=== PATIENT | female | born 1960 | race Hispanic/Latino ===

== ENCOUNTER 2024-11-12 07:47 | Day surgery (SDC) | payer OTHER ==
[~2024-11-12] VITALS: Ht 152.4 cm; Wt 58.5 kg
[~2024-11-12 07:47] MED LIST: DILAUDID 2MG2 MG/TA1 PO; KEFLEX500 MG PO; LEVOTHYROXIN50 MCG PO; LEVOTHYROXIN75 MCG PO; LORTAB5 PO; PERCOCET 5/325M1 TAB PO; PRAVASTATIN PO
[2024-11-12] MEDS ORDERED: SODIUM CHLORIDE 0.9% 1,000 ML IV ONE (07:49)
[2024-11-12] MEDS ORDERED: FAMOTIDINE 10MG/ML 2ML SDV IV ONE (07:49)
[2024-11-12 09:54] VITALS: BP 145/78
[2024-11-12] MEDS ORDERED: LIDOCAINE HCL 2% 2ML SDV IV ONE (12:06)
[2024-11-12] MEDS ORDERED: PROPOFOL 200 MG/20 ML VIAL IV ONE (12:06)
[2024-11-12] MEDS ORDERED: GLYCOPYRROLATE 0.2 MG/ML IV ONE (12:06)
== END 2024-11-12 10:03 | disposition home or self-care (01) | DRG 951 ==
LOC: ENDO 07:47
PROVIDERS: ATTEND Surgery
PROC: 0DJD8ZZ Inspection of Lower Intestinal Tract, Via Natural or Artificial Opening Endoscopic (ICD-10-PCS; principal; 2024-11-12)
DX: Z12.11 Encounter for screening for malignant neoplasm of colon (principal); K64.4 Residual hemorrhoidal skin tags; E03.9 Hypothyroidism, unspecified; E78.5 Hyperlipidemia, unspecified
CPT/HCPCS: J1596